=== PATIENT | female | born 1940 | race Caucasian/White ===

== ENCOUNTER 2017-02-07 15:22 | Inpatient (IN) | payer MEDICARE ==
--- NOTE | ~2017-02-07 | OP ---
Record Of [address] [place]. [address] NAME: TRAE CARTAGENA : 38 STATUS : ADM IN PAT#: [id number] AGE: 76 ADM/REG DATE : 02/10/17 MR#: [id number] REPORT SERV DATE: 02/12/17 DICTATED BY: JOSE HUSSEIN DATE: 02/09/17 REPORT STATUS : Draft TRANSCRIBED BY: MODL DATE: 02/09/17 DATE OF PROCEDURE: 02/09/2017 PREOPERATIVE DIAGNOSES: 1. 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 2. Diabetes mellitus type 2. 3. Sarcoidosis with steroid therapy. 4. Coronary artery disease. 5. Hypertension. 6. Malnutrition. POSTOPERATIVE DIAGNOSES: 1. 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 2. Diabetes mellitus type 2. 3. Sarcoidosis with steroid therapy. 4. Coronary artery disease. 5. Hypertension. 6. Malnutrition. PROCEDURE: Sharp excisional debridement of left inframammary fold wound with debridement of skin, subcutaneous tissue, and muscle to chest wall (5.0 x 5.4 x 1.8 cm). ANESTHESIA: IV morphine. SURGEON: Jose Hussein M.D. COMPLICATIONS: None. DRAINS: None. ESTIMATED BLOOD LOSS: 10 mL. OPERATIVE TECHNIQUE: The patient remained at the bedside. The consent was obtained and discussed with the patient and her son, and they wished to proceed. The wound was prepped around the incision and in the incision with Betadine swabs. The patient was given IV morphine. The necrotic tissue was sharply excised with forceps and sharp scissors to excise all the skin subcutaneous tissue, and down to the level of the chest wall muscle with two levels of palpable ribs. The musculature over the ribs was intact. There was no clinical involvement of the thoracic cavity, abscess, drainage, or other sinus tracts. All the necrotic tissue was excised and discarded. The wound was then made hemostatic with pressure. It was packed with Aquacel Ag, followed by Mepitel dressing. She tolerated the procedure well. /MODL Record Of [place] [address] [facility] [place]. [address] NAME: TRAE CARTAGENA : 38 STATUS : ADM IN PAT#: [id number] AGE: 76 ADM/REG DATE : 02/10/17 MR#: [id number] REPORT SERV DATE: 02/12/17 DICTATED BY: JOSE HUSSEIN DATE: 02/09/17 REPORT STATUS : Draft TRANSCRIBED BY: BREE DATE: 02/09/17 Jose Hussein M.D. / [id number] CC: Aditya William Jr, MD
--- NOTE | ~2017-02-07 | CN ---
Consultation Report [facility] [address] [place]. [address] NAME: TRAE CARTAGENA : 38 STATUS : ADM Chandra PAT#: [id number] AGE: 76 ADM/REG DATE : 02/07/17 MR#: [id number] REPORT SERV DATE: 02/09/17 DICTATED BY: SAMM HUSSEIN DATE: 02/09/17 REPORT STATUS : Draft TRANSCRIBED BY: MODL DATE: 02/09/17 SURGICAL CONSULTATION DATE OF CONSULTATION: 02/09/2017 REASON FOR CONSULTATION: Left inframammary fold wound with necrotic slough. HISTORY OF PRESENT ILLNESS: This is a 76-year-old female who was admitted on 02/07/2017 with suspected recurrent Clostridium difficile colitis with diarrhea, weight loss, anorexia, and weakness. She had a robotic-assisted coronary artery bypass and was subsequently diagnosed with this C diff and treated on two different occasions. She subsequently had a breakdown of her left inframammary incision with treatment with antibiotics as well. She has had a Vac-Pac, but on exam today, the patient has a large amount of wet yellow-black necrotic slough. There is no periwound cellulitis or abscess. It will need debridement. I have discussed the risks, benefits, and alternatives, and they agreed to proceed at the bedside. The patient has significant comorbidities to inferior wound healing including diabetes mellitus, malnutrition, sarcoidosis with prednisone, and her coronary disease. She has no systemic infection at this time. PAST MEDICAL HISTORY: As above. PAST SURGICAL HISTORY: Cholecystectomy, coronary artery bypass, tonsillectomy, partial hysterectomy, and eye surgery. MEDICATIONS: Please see hospital chart. ALLERGIES: PENICILLIN, RESTORIL, KLONOPIN, CELEBREX, OXYBUTYNIN, AND OXYCODONE. FAMILY HISTORY: Positive for lung cancer and heart failure. SOCIAL HISTORY: The patient denies alcohol, tobacco, or illicit drug usage. Her son is at the bedside with her sister. REVIEW OF SYSTEMS: No headache, blurred vision, dizziness, chest pain, shortness of breath, cough, dyspnea on exertion, syncope, palpitations, jaundice, or itching. She does have decreased appetite. She has some weakness. PHYSICAL EXAMINATION: GENERAL: Well-developed female, in no apparent distress. NECK: Supple. No adenopathy. CARDIOVASCULAR: Regular rate and rhythm without murmur. RESPIRATORY: Clear to auscultation. ABDOMEN: Soft, nondistended, and nontender. Consultation Report [address] [place]. [address] NAME: TRAE CARTAGENA : 38 STATUS : ADM Chandra PAT#: [id number] AGE: 76 ADM/REG DATE : 02/07/17 MR#: [id number] REPORT SERV DATE: 02/09/17 DICTATED BY: SAMM HUSSEIN DATE: 02/09/17 REPORT STATUS : Draft TRANSCRIBED BY: BREE DATE: 02/09/17 BACK: No CVA tenderness. EXTREMITIES: No clubbing, cyanosis, edema, or jaundice. CHEST: The patient has a left inframammary fold wound with minimal periwound erythema. It is a large wound with a large amount of yellow wet necrotic slough. LABS: Please see hospital chart. ASSESSMENT: 1. Probable persistent Clostridium difficile colitis. 2. Acute kidney injury. 3. Coronary artery disease. 4. Sarcoidosis with steroid therapy. PLAN: The patient will need sharp excisional debridement and continued medical care per admitting team. They are aware of the risk and wish to proceed. /BREE Samm Hussein M.D. / [id number] CC: Aditya William Jr, MD Eileen Y Boroughs, M.D.
--- NOTE | ~2017-02-07 | HP ---
History And Physical [address] [place]. [address] NAME: TRAE CARTAGENA : 38 STATUS : ADM Chandra PAT#: [id number] AGE: 76 ADM/REG DATE : 02/07/17 MR#: [id number] REPORT SERV DATE: 02/07/17 DICTATED BY: JANESSA BALLARD DATE: 02/07/17 REPORT STATUS : Draft TRANSCRIBED BY: MODL DATE: 02/07/17 DATE OF ADMISSION: 02/07/2017 CHIEF COMPLAINT: Suspected recurrent C. diff with weight loss, decreased appetite, and weakness. HISTORY OF PRESENT ILLNESS: The patient is a 76-year-old female. She has a past medical history significant for recent cardiac surgery done at [place] for CAD. She subsequently was diagnosed with C. diff, which she has undergone treatment x2 rounds with Flagyl. She has a history of diabetes, sarcoidosis, hypothyroidism, neuropathy, and history of TIAs in the past. She presents today with above complaints. Basically after her cardiac surgery, she had trouble with wound healing. She was subsequently diagnosed with a wound infection, placed on a wound VAC and did receive antibiotics for that. She had diarrhea and tested positive for C. diff at [facility] on 12/15. She started Flagyl treatment at that time and then after hospitalization there, was sent to [facility]. She is not certain if additional Flagyl was given at [facility], but she was not in [facility] from the to ; got at least that amount of treatment. She had recurrent symptoms of diarrhea on the and was tested again positive for C. diff and was given Flagyl again from the to . She states that after both treatment, she noted some improvement but not resolution of the diarrhea. She actually went approximately a week without diarrhea and then over the weekend, started developing diarrhea again with the customary odor of the C. diff. Although she was not having large volume diarrhea episode. She was having them frequently over several hours. Seems to have had some fecal urgency with it. She states home health tested a sample on the and she was positive again, and she presented here. Otherwise, she states her wound has been doing well. Her sugars have not been difficult to control. She has had no problems with her sarcoid. 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 Lasha Worthy. She states that he had recommended a Holter monitor for her, but she has not got that done as she apparently has to get the wound VAC off before that. There was some question of whether she had some intermittent atrial fib during her hospitalization in December. She was placed on amiodarone but apparently not on an anticoagulant. Otherwise, she is without complaints today. PAST MEDICAL HISTORY: As covered above. PAST SURGICAL HISTORY: She has had a cholecystectomy, her heart surgery, tonsils and adenoids, partial hysterectomy, eye surgery and a detached retina surgery. CURRENT MEDICATIONS: Tylenol, allopurinol 300 daily, amiodarone 200 daily, Norvasc 5, aspirin 81, vitamin D3 2000, Plavix 75, Nexium 20, Zetia 10, Prozac 20 b.i.d., Glucotrol 5 daily, levothyroxine 0.112 daily, Tradjenta 5 daily, metformin 500 twice a day, Lopressor 25 one and half tablets twice a day, Nystatin, prednisone 5, Florastor 250, VESIcare 5, thiamine 100. ALLERGIES: PENICILLIN, RESTORIL, OXYCODONE, KLONOPIN, OXYBUTYNIN, AND CELEBREX. FAMILY HISTORY: Both parents . Father from lung cancer. Mother from heart failure. History And Physical [address] [address] NAME: TRAE CARTAGENA : 38 STATUS : ADM Chandra PAT#: [id number] AGE: 76 ADM/REG DATE : 02/07/17 MR#: [id number] REPORT SERV DATE: 02/07/17 DICTATED BY: JANESSA BALLARD DATE: 02/07/17 REPORT STATUS : Draft TRANSCRIBED BY: MODAshlee DATE: 02/07/17 SOCIAL HISTORY: Nondrinker, nonsmoker. REVIEW OF SYSTEMS: HEENT: No complaints. CARDIOVASCULAR: Currently, no chest pains, palpitations, or syncope. PULMONARY: No shortness of breath. GI: Decreased appetite, weight loss, and as covered in HPI. : She is currently denying dysuria, but she is apparently having some frequency. NEUROMUSCULOSKELETAL: Her sarcoid has been otherwise relatively stable. She has had some generalized weakness, slightly worse on her left which is apparently was more effective from her previous TIAs. Otherwise, review of systems is negative. PHYSICAL EXAMINATION: VITAL SIGNS: Her current BP is 129/52, pulse 73, temp 97.5, respirations 17, saturation 98%. GENERAL: She is awake, alert, oriented, in no acute distress. HEENT: Normocephalic, atraumatic. Sclerae nonicteric. NECK: Supple. HEART: Regular rate and rhythm. LUNGS: Clear to auscultation without rhonchi, rales, or wheezes. ABDOMEN: Nontender, nondistended. No guarding or rebound. EXTREMITIES: No clubbing, cyanosis, or edema. LAB: Sodium 139, potassium 4.1, chloride 106, CO2 of 23, BUN and creatinine 21 and 1.3 with a glucose of 107. White count 11.2, H and H 12 and 37.5, platelets are 292. Urine shows many bacteria, but only 10 wbc's, 1 epi and trace LE. Last stool culture here was positive on 01/17 for C. diff. ASSESSMENT: 1. Clinical recurrence of Clostridium difficile with return of diarrhea and foul odor to the stool. 2. Acute kidney injury, probably due to decreased p.o. intake. 3. Coronary artery disease. She states that the robotic surgery was not completely successful. Questionable history of atrial fibrillation during her last hospitalization at [facility]. 4. Other chronic medical problems as listed above. PLAN: The patient has been admitted. We will redo another C. diff sample, but she certainly will most likely be positive given her multiple previous stools and her apparent one done by home health on the . We will try her on vancomycin at this time since she has been unable to completely clear symptoms clinically with the Flagyl. We will continue home medications as appropriate. We will monitor for any recurrent atrial fibrillation, IV fluids, and repeat lab. History And Physical [address] [address] NAME: TRAE CARTAGENA : 38 STATUS : ADM Chandra PAT#: [id number] AGE: 76 ADM/REG DATE : 02/07/17 MR#: [id number] REPORT SERV DATE: 02/07/17 DICTATED BY: JANESSA BALLARD DATE: 02/07/17 REPORT STATUS : Draft TRANSCRIBED BY: MODL DATE: 02/07/17 TLF/PEYMNAL Janessa Ballard M.D. / [id number] CC: Aditya William Jr, MD
--- NOTE | ~2017-02-07 | CN ---
Consultation Report [facility] [address] [place] [place]. [address] NAME: TRAE CARTAGENA : 38 STATUS : ADM Chandra PAT#: [id number] AGE: 76 ADM/REG DATE : 02/07/17 MR#: [id number] REPORT SERV DATE: 02/09/17 DICTATED BY: ERIC SILVEIRA DATE: 02/08/17 REPORT STATUS : Draft TRANSCRIBED BY: MODAshlee DATE: 02/08/17 DATE OF CONSULTATION: REASON FOR CONSULT: C difficile diarrhea. HISTORY OF PRESENT ILLNESS: A 76-year-old white lady with diabetes, history of sarcoidosis, TIAs, who had a thoracoscopic one vessel coronary artery bypass at the [place]. Since that procedure, she had multiple complications. She had an infection at thoracoscopic entry site and then C difficile diarrhea. She followed with her thoracic surgeon and then the [facility] [place]. She remembers getting Levaquin at some point. She does not know if any cultures were done. She received two courses of treatment with Flagyl for C difficile diarrhea, the last one just ended on the . The stools are still soft at that time. Since then, she continued to have some soft or loose stools about three times a day, nausea, lack of appetite, odor to the stools. She was admitted yesterday and started on p.o. vancomycin. There was no stool studies done here at this hospital, but according to the chart, there is a stool C diff test done in outpatient that was positive for C diff. Her son is present and he is worried about his mother's weight loss. She reports a history of acid reflux/GERD. It is unclear if she has any symptoms now. She does not report acute shortness of breath or dysuria. PAST MEDICAL HISTORY: As I mentioned above plus history of cholecystectomy, hysterectomy, retina surgery. ALLERGIES: PENICILLIN LONG TIME AGO, CAUSE SWELLING AT AN IM INJECTION SITE, BUT NO RASH, NO THROAT SWELLING. FAMILY HISTORY: Cancer. MEDICATIONS ON ADMISSION: Allopurinol, amiodarone, amlodipine, aspirin, vitamin D3, Plavix, Nexium, Zetia, Prozac, glipizide, levothyroxine, linagliptin, metformin, metoprolol, nystatin, oral solution for thrush, prednisone 5 mg a day, Florastor, VESIcare, thiamine. PHYSICAL EXAMINATION: GENERAL: She is awake, debilitated. HEART: Regular rhythm. LUNGS: Clear to auscultation anteriorly. ABDOMEN: Soft. She has some coccyx area erythema without skin breakdown. Left chest surgical site has a wound, has a soft eschar, it sits under the left breast. Feet without any open wounds. LABORATORY WORK: Yesterday, creatinine 1.1. WBC 11. Urinalysis with 10 white blood cells. ASSESSMENT AND PLAN: Clostridium difficile diarrhea, apparently not responded properly to Flagyl. Weight loss, debility, nausea. Agree with oral vancomycin. See how she responds Consultation Report [place] [id number] [facility] [place]. [address] NAME: TRAE CARTAGENA : 38 STATUS : ADM Chandra PAT#: [id number] AGE: 76 ADM/REG DATE : 02/07/17 MR#: [id number] REPORT SERV DATE: 02/09/17 DICTATED BY: ERIC SILVEIRA DATE: 02/08/17 REPORT STATUS : Draft TRANSCRIBED BY: BREE DATE: 02/08/17 clinically. Consider a long course with tapered down regimen, initially 125 mg p.o. four times a day for two weeks, then every week taper down to three times a day, then twice a day, then once a day. I discussed with the son need to do proper home environmental infection. Avoid unnecessary antibacterials, ideally would hold the Nexium while this is treated. She needs to continue left chest wall wound care. Again, I discussed with the son a followup as needed. ASHLEY/BREE Eric Silveira M.D. / [id number] CC: Aditya William Jr, MD Eileen Y Boroughs, M.D.
--- NOTE | ~2017-02-07 | DS ---
Discharge Summary [address] [place]. [address] NAME: TRAE CARTAGENA : 38 STATUS : DIS IN PAT#: [id number] AGE: 76 ADM/REG DATE : 02/10/17 MR#: [id number] REPORT SERV DATE: 02/14/17 DICTATED BY: JR. BANKS WILLIAM JOHN DATE: 02/13/17 REPORT STATUS : Draft TRANSCRIBED BY: MODsAhlee DATE: 02/13/17 ADMISSION DATE: 02/10/2017 DISCHARGE DATE: 02/13/2017 DISCHARGE DIAGNOSES: 1. Left inframammary wound after robotic heart surgery. 2. Recurrent Clostridium difficile colitis. 3. Acute kidney injury. 4. Coronary artery disease with recent robotic heart surgery. 5. Deconditioning. 6. Insulin-requiring diabetes mellitus with neuropathy. 7. History of sarcoidosis. 8. Hypothyroidism. 9. History of paroxysmal atrial fibrillation. OPERATIONS/PROCEDURES AND TREATMENTS: Include: 1. C. difficile PCR on 02/13/2017 was positive. 2. Sharp excisional debridement of left inframammary wound fold with debridement of skin, subcutaneous tissue, and muscle to the chest wall measuring 5 x 5.4 x [address] Arauz. 3. Wound VAC placement. 4. Infectious Disease consultation by Dr. Eric Mcnally. DISCHARGE MEDICATIONS: Include: 1. Allopurinol 300 mg orally daily. 2. Aspirin 81 mg orally daily. 3. Amiodarone 200 mg orally daily. 4. Clopidogrel 75 mg orally daily. 5. Vitamin D3 of 2000 units at bedtime. 6. Zetia 10 mg orally daily. 7. Prozac 20 mg orally twice a day. 8. Synthroid 112 mcg orally daily. 9. Metoprolol 37.5 mg orally twice a day. 10.Nystatin swish and swallow 5 mL four times a day. 11.Nexium 20 mg orally daily. 12.Florastor 250 mg orally daily. 13.Thiamine 100 mg orally twice a day. 14.VESIcare 5 mg orally daily. 15.Vancomycin 125 mg orally every six hours until 02/20/2017, then 125 mg every eight hours for seven days, then 125 mg every 12 hours for seven days, then 125 mg orally daily for seven days, then none. 16.Prednisone 5 mg orally daily. 17.Glipizide 5 mg orally daily. 18.Metformin 500 mg orally twice a day. 19.Norvasc 5 mg orally daily. 20.Tradjenta 5 mg orally daily. Discharge Summary [facility] [place] [place]. [address] NAME: TRAE CARTAGENA : 38 STATUS : DIS IN PAT#: [id number] AGE: 76 ADM/REG DATE : 02/10/17 MR#: [id number] REPORT SERV DATE: 02/14/17 DICTATED BY: JR. BANKS WILLIAM JOHN DATE: 02/13/17 REPORT STATUS : Draft TRANSCRIBED BY: BREE DATE: 02/13/17 HOSPITAL COURSE: The patient was a 76-year-old white female who presented to [facility] emergency room on 02/07/2017 with complaint of recurrent C. difficile, weight loss, decreased appetite, and weakness. The patient is a 76-year-old white female with past history significant for recent robotic coronary surgery done at [place]. She was subsequently diagnosed with Clostridium difficile colitis and had received two separate rounds of Flagyl. She had a sample tested by [facility] that was positive, and she was recommended to come to the hospital for further help. For initial exam, laboratory, and history, please see Dr. Baltazar's dictated history and physical. The patient is admitted to [facility] where she was started on oral vancomycin. Her diarrhea had actually resolved. She was seen in consultation by Dr. Eric Mcnally, who recommended a four-week taper, diarrhea did not return. She will complete her taper on 03/13/2017. Regarding the patient's inframammary wound, there is significant necrotic debris at the wound bed. Her VAC was discontinued. She was seen in consultation by Dr. Arauz and eventually underwent a surgical debridement with placement of a wound VAC. Arrangements have been made for home health to care for the wound VAC. Regarding the patient's nutritional status, her family had supplied her with Glucerna shakes, which she has been tolerating. Regarding deconditioning, patient was seen and evaluated by Physical therapy. She was felt to be initially a good candidate for inpatient rehabilitation. However, the patient declined and will go live with her daughter in [place], [place]. She will have home health for wound VAC changes and will follow up with Dr. Arauz. She will also have home physical therapy. The patient's family will arrange for a primary care physician in the [facility]. For discharge exam and laboratory, please see the daily progress note. This discharge took 35 minutes for patient encounter, coordination of care, and documentation. DISCHARGE DIET: ADA diet. ACTIVITY: As tolerated. WCYNDIE/BREE Aditya Banks Jr, MD / [id number] Discharge Summary [address] [address] NAME: TRAE CARTAGENA : 38 STATUS : DIS IN PAT#: [id number] AGE: 76 ADM/REG DATE : 02/10/17 MR#: [id number] REPORT SERV DATE: 02/14/17 DICTATED BY: JR. BANKS WILLIAM JOHN DATE: 02/13/17 REPORT STATUS : Draft TRANSCRIBED BY: BREE DATE: 02/13/17 CC: Aditya Banks Jr, MD Eileen Y Boroughs, M.D.
[2017-02-07 11:00] LABS: BASOPHILS 0.2 %; BASOPHILS ABSOLUTE 0.02 10/3/uL (0.0-0.16); EOSINOPHILS 0.1 %; EOSINOPHILS ABSOLUTE 0.01 10/3/uL (0.0-0.53); IMMATURE GRANULOCYTES 1.1 %; IMMATURE GRANULOCYTES ABSOLUTE 0.12 10/3/uL (0.0-0.11); LYMPHOCYTES 16.5 %; LYMPHOCYTES ABSOLUTE 1.82 10/3/uL (0.67-4.30); MEAN CORPUSCULAR HEMOGLOB 30.8 pg (26.0-34.0); MEAN PLATELET VOLUME 8.6 fL (9.2-13.0); MONOCYTES 6.5 %; MONOCYTES ABSOLUTE 0.72 10/3/uL (0.21-1.20); NEUTROPHILS 75.6 %; NEUTROPHILS ABSOLUTE 8.36 10/3/uL (2.02-8.40); PLATELET COUNT 292 10/3/uL (150-400); RBC DISTRIBUTION WIDTH 16.4 % (12.0-16.0); RED CELL COUNT 3.89 10/6/uL (4.0-5.6)
[2017-02-07 11:03] LABS: ER CBC TAT 0 Hrs 08 Mins; HEMATOCRIT 37.5 % (36.0-48.0); MANUAL DIFF NO %; MEAN CORPUSCULAR VOLUME 96.4 fL (80-100); WHITE BLOOD CELLS 11.1 10/3/uL (4.5-10.5)
[2017-02-07 11:17] LABS: A/G RATIO 0.8 (0.7-1.9); ALBUMIN 2.9 G/DL (3.5-5.0); BUN (BLOOD UREA NITROGEN) 21 MG/DL (6-23); CALCIUM, SERUM 9.3 MG/DL (8.5-10.4); CHLORIDE, SERUM 106 MMOL/L (96-112); CO2 (CARBON DIOXIDE) 23 MMOL/L (24-34); CREATININE 1.31 MG/DL (0.55-1.02); GFR AFRICAN AMERICAN 45 ML/MIN (>=60); GFR NON AFRICAN AMERICAN 39 ML/MIN (>=60); GLOBULIN 3.6 G/DL (2.5-4.1); GLUCOSE, SERUM 107 MG/DL (60-99); POTASSIUM, SERUM 4.1 MMOL/L (3.5-5.3); SGOT(AST) 22 U/L (5-40); SGPT(ALT) 17 U/L (5-65); SODIUM, SERUM 139 MMOL/L (135-148); TOTAL PROTEIN 6.5 G/DL (6.0-8.5)
[2017-02-07 11:19] LABS: ALKALINE PHOSPHATASE 53 U/L (45-117); TOTAL BILIRUBIN 0.3 MG/DL (0-1.2)
[2017-02-07 15:16] LABS: ASCORBIC ACID (UR NOT ORDER) NEG (NEG); BILIRUBIN, URINE NEGATIVE (NEG); ER URINALYSIS TAT 0 Hrs 10 Mins; KETONE, URINE NEGATIVE (NEG); LEUKOCYTE ESTERASE(NOT OR TRACE (NEG); NITRITE (URINE) NEG (NEG); WBC (NOT ORDERED) (RFLEX) 10 (0-5)
[~2017-02-07 15:22] MED LIST: ASAB PO; COZ25 PO; FORTAMET500 MG PO; GLUCOTROL5 PO; LO-DOSE ASPIRIN81 M1 PO; PR25 PO; PREV15 PO; PROZAC PO; SARAFEM20 M1 PO; SYN1 PO; VESICARE5 PO; Z300 PO; ZETIA PO; [UNRECOGNIZED DRUG - OTHER] PO
[2017-02-07] MEDS ORDERED: NEXIUM20 M1 PO (15:37)
[2017-02-07] MEDS ORDERED: LEVOTHYROXIN112 MCG PO (15:37)
[2017-02-07] MEDS ORDERED: CORDARONE PO (15:38)
[2017-02-07] MEDS ORDERED: FLORASTOR250 MG PO (15:38)
[2017-02-07] MEDS ORDERED: NORV5 PO (15:38)
[2017-02-07] MEDS ORDERED: TRADJENTA5 MG PO (15:39)
[2017-02-07] MEDS ORDERED: P5 PO (15:40)
[2017-02-07] MEDS ORDERED: B1100 PO (15:44)
[2017-02-07] MEDS ORDERED: LOP25 PO (15:45)
[2017-02-07] MEDS ORDERED: VITAMIN D31000 UNIT PO (15:46)
[2017-02-07] MEDS ORDERED: PLAVIX PO (15:46)
[2017-02-07] MEDS ORDERED: NYS500UDL PO (15:48)
[2017-02-07] MEDS ORDERED: T PO (15:49)
[2017-02-08 05:24] LABS: BUN (BLOOD UREA NITROGEN) 22 MG/DL (6-23); CALCIUM, SERUM 8.8 MG/DL (8.5-10.4); CHLORIDE, SERUM 107 MMOL/L (96-112); CO2 (CARBON DIOXIDE) 22 MMOL/L (24-34); CREATININE 1.15 MG/DL (0.55-1.02); GFR AFRICAN AMERICAN 53 ML/MIN (>=60); GFR NON AFRICAN AMERICAN 46 ML/MIN (>=60); GLUCOSE, SERUM 56 MG/DL (60-99); POTASSIUM, SERUM 4.2 MMOL/L (3.5-5.3); SODIUM, SERUM 141 MMOL/L (135-148)
[2017-02-09 04:49] LABS: CALCIUM, SERUM 8.8 MG/DL (8.5-10.4); CHLORIDE, SERUM 104 MMOL/L (96-112); CO2 (CARBON DIOXIDE) 24 MMOL/L (24-34); CREATININE 1.23 MG/DL (0.55-1.02); GFR AFRICAN AMERICAN 49 ML/MIN (>=60); GFR NON AFRICAN AMERICAN 42 ML/MIN (>=60); POTASSIUM, SERUM 4.4 MMOL/L (3.5-5.3); SODIUM, SERUM 140 MMOL/L (135-148)
[2017-02-09 04:50] LABS: BUN (BLOOD UREA NITROGEN) 15 MG/DL (6-23); GLUCOSE, SERUM 118 MG/DL (60-99)
[2017-02-10 06:15] LABS: BUN (BLOOD UREA NITROGEN) 14 MG/DL (6-23); CHLORIDE, SERUM 106 MMOL/L (96-112); CO2 (CARBON DIOXIDE) 23 MMOL/L (24-34); CREATININE 1.37 MG/DL (0.55-1.02); GFR AFRICAN AMERICAN 43 ML/MIN (>=60); GFR NON AFRICAN AMERICAN 37 ML/MIN (>=60); GLUCOSE, SERUM 113 MG/DL (60-99); POTASSIUM, SERUM 4.5 MMOL/L (3.5-5.3); SODIUM, SERUM 140 MMOL/L (135-148)
[2017-02-11 05:24] LABS: BASOPHILS 0.2 %; BASOPHILS ABSOLUTE 0.01 10/3/uL (0.0-0.16); EOSINOPHILS 0.2 %; EOSINOPHILS ABSOLUTE 0.01 10/3/uL (0.0-0.53); HEMATOCRIT 32.5 % (36.0-48.0); HEMOGLOBIN 10.6 g/dL (12.0-16.0); IMMATURE GRANULOCYTES 2.1 %; IMMATURE GRANULOCYTES ABSOLUTE 0.13 10/3/uL (0.0-0.11); LYMPHOCYTES 28.5 %; LYMPHOCYTES ABSOLUTE 1.76 10/3/uL (0.67-4.30); MANUAL DIFF NO %; MEAN CORPUS HGB CONC 32.6 g/dL (32.0-36.0); MEAN CORPUSCULAR HEMOGLOB 31.6 pg (26.0-34.0); MEAN PLATELET VOLUME 8.6 fL (9.2-13.0); MONOCYTES 9.7 %; NEUTROPHILS 59.3 %; NEUTROPHILS ABSOLUTE 3.67 10/3/uL (2.02-8.40); PLATELET COUNT 234 10/3/uL (150-400); RBC DISTRIBUTION WIDTH 15.7 % (12.0-16.0); RED CELL COUNT 3.35 10/6/uL (4.0-5.6); WHITE BLOOD CELLS 6.2 10/3/uL (4.5-10.5)
[2017-02-11 05:38] LABS: ALBUMIN 2.6 G/DL (3.5-5.0); BUN (BLOOD UREA NITROGEN) 16 MG/DL (6-23); CHLORIDE, SERUM 104 MMOL/L (96-112); CO2 (CARBON DIOXIDE) 25 MMOL/L (24-34); CREATININE 1.14 MG/DL (0.55-1.02); GFR AFRICAN AMERICAN 53 ML/MIN (>=60); GFR NON AFRICAN AMERICAN 46 ML/MIN (>=60); GLUCOSE, SERUM 113 MG/DL (60-99); PHOSPHORUS, SERUM 3.2 MG/DL (2.5-4.5); POTASSIUM, SERUM 4.5 MMOL/L (3.5-5.3); SODIUM, SERUM 138 MMOL/L (135-148)
[2017-02-12 03:48] LABS: BASOPHILS 0.2 %; BASOPHILS ABSOLUTE 0.01 10/3/uL (0.0-0.16); EOSINOPHILS 0.2 %; EOSINOPHILS ABSOLUTE 0.01 10/3/uL (0.0-0.53); HEMATOCRIT 33.2 % (36.0-48.0); HEMOGLOBIN 10.7 g/dL (12.0-16.0); IMMATURE GRANULOCYTES 2.5 %; IMMATURE GRANULOCYTES ABSOLUTE 0.16 10/3/uL (0.0-0.11); LYMPHOCYTES 24.5 %; LYMPHOCYTES ABSOLUTE 1.55 10/3/uL (0.67-4.30); MEAN CORPUS HGB CONC 32.2 g/dL (32.0-36.0); MEAN CORPUSCULAR HEMOGLOB 31.1 pg (26.0-34.0); MEAN CORPUSCULAR VOLUME 96.5 fL (80-100); MEAN PLATELET VOLUME 8.7 fL (9.2-13.0); MONOCYTES 9.8 %; MONOCYTES ABSOLUTE 0.62 10/3/uL (0.21-1.20); NEUTROPHILS 62.8 %; NEUTROPHILS ABSOLUTE 3.98 10/3/uL (2.02-8.40); PLATELET COUNT 262 10/3/uL (150-400); RBC DISTRIBUTION WIDTH 15.7 % (12.0-16.0); RED CELL COUNT 3.44 10/6/uL (4.0-5.6); WHITE BLOOD CELLS 6.3 10/3/uL (4.5-10.5)
[2017-02-12 03:53] LABS: MANUAL DIFF NO %
[2017-02-12 03:54] LABS: CALCIUM, SERUM 9.5 MG/DL (8.5-10.4); CHLORIDE, SERUM 101 MMOL/L (96-112); CO2 (CARBON DIOXIDE) 26 MMOL/L (24-34); CREATININE 1.23 MG/DL (0.55-1.02); GFR AFRICAN AMERICAN 49 ML/MIN (>=60); GFR NON AFRICAN AMERICAN 42 ML/MIN (>=60); POTASSIUM, SERUM 4.9 MMOL/L (3.5-5.3); SODIUM, SERUM 136 MMOL/L (135-148)
[2017-02-12 03:55] LABS: BUN (BLOOD UREA NITROGEN) 20 MG/DL (6-23); GLUCOSE, SERUM 152 MG/DL (60-99)
[2017-02-13] MEDS ORDERED: VANCOCIN HCL125 MG PO (15:51)
== END 2017-02-13 16:45 | disposition home health service (06) | DRG 908 ==
LOC: ER 15:22 → CDU1 15:33 → CDU2 02-09 06:30 → CDU1 02-09 07:12
PROVIDERS: Emergency Medicine; Hospitalist; Internal Medicine
PROC: 0KBJ0ZZ Excision of Left Thorax Muscle, Open Approach (ICD-10-PCS; principal; 2017-02-09)
DX: T81.89XA Other complications of procedures, not elsewhere classified, initial encounter (principal); A04.7 Enterocolitis due to Clostridium difficile; N17.9 Acute kidney failure, unspecified; E46 Unspecified protein-calorie malnutrition; E11.40 Type 2 diabetes mellitus with diabetic neuropathy, unspecified; E86.0 Dehydration; I48.0 Paroxysmal atrial fibrillation; D86.9 Sarcoidosis, unspecified; E03.9 Hypothyroidism, unspecified; I25.10 Atherosclerotic heart disease of native coronary artery without angina pectoris; K21.9 Gastro-esophageal reflux disease without esophagitis; R63.4 Abnormal weight loss; Y83.8 Other surgical procedures as the cause of abnormal reaction of the patient, or of later complication, without mention of misadventure at the time of the procedure; Y71.3 Surgical instruments, materials and cardiovascular devices (including sutures) associated with adverse incidents; Z79.4 Long term (current) use of insulin; Z90.49 Acquired absence of other specified parts of digestive tract; Z88.0 Allergy status to penicillin; Z88.5 Allergy status to narcotic agent; Z95.1 Presence of aortocoronary bypass graft; Z88.8 Allergy status to other drugs, medicaments and biological substances; Z86.73 Personal history of transient ischemic attack (TIA), and cerebral infarction without residual deficits; Z79.52 Long term (current) use of systemic steroids; Z68.22 Body mass index [BMI] 22.0-22.9, adult; Z79.02 Long term (current) use of antithrombotics/antiplatelets
CPT/HCPCS: 80048; 80053; 80069; 81001; 82962; 83036; 83690; 83735; 84443; 85025; 87493; 87493-59; 97116-GP; 97162-GP; 99285; A9270-GY; G8978-CK-GP; G8979-CJ-GP; J2405